=== PATIENT | male | born 1990 | race Two or more races ===

== ENCOUNTER 2023-06-14 21:05 | Emergency (ER) | payer OTHER ==
[2023-06-14 21:14] VITALS: BMI 28.4
[2023-06-14] MEDS ORDERED: morphine CARPU-JECT 4 MG/1 ML DISP.SYRIN IVPUSH ONE (21:28)
[2023-06-14] MEDS ORDERED: SODIUM CHLORIDE 0.9% 500 ML INFUS.BAG IV ONE (21:28)
[2023-06-14] MEDS ORDERED: FAMOTIDINE 20 MG/50 ML IVPB 20 MG/50 ML MG IVPB ONE ×2 (21:28→21:35)
[2023-06-14] MEDS ORDERED: ONDANSETRON 4 MG/2 ML VIAL IVPUSH ONE (21:28)
[2023-06-14] MEDS ORDERED: morphine SULFATE 4 MG/ML VIAL ONE (21:35)
[2023-06-14] MEDS ORDERED: ONDANSETRON 4 MG/2 ML VIAL ONE (21:35)
[2023-06-14 21:52] LABS: BASO % 0.3 % (0-2.0); EOS % 1.3 % (0-4.5); HEMOGLOBIN 15.7 GM/dL (11.7-16.9); LYMPH % 23.2 % (8-40); MCHC 34.9 g/dl (32.0-35.9); MEAN CELL VOLUME 88.9 fl (80-96); MEAN PLT VOLUME 6.7 fl (7.5-11.1); MONO % 6.9 % (3.8-10.2); NEUT % 68.3 % (42.8-82.8); PLATELET COUNT 249 10^3/uL (134-434); RBC 5.06 M/mm3 (4.00-5.60); RDW 13.6 % (11.9-15.9); WHITE BLOOD COUNT 7.7 K/mm3 (4.0-10.0)
[2023-06-14 22:00] LABS: INR 0.93 (0.83-1.09); PROTHROMBIN TIME (PATIENT) 10.8 SEC (9.7-13.0)
[2023-06-14 22:02] LABS: ACTIVATED PTT 28.1 SECONDS (25.2-36.5)
[2023-06-14 22:09] LABS: POTASSIUM 3.4 mmol/L (3.5-5.1)
[2023-06-14 22:11] LABS: CALCIUM 9.3 mg/dL (8.5-10.1)
[2023-06-14 22:12] LABS: ALBUMIN 3.8 g/dl (3.4-5.0); BLOOD UREA NITROGEN 10.7 mg/dL (7-18)
[2023-06-14 22:14] LABS: CREATININE 0.8 mg/dL (0.55-1.3)
[2023-06-14 22:16] LABS: BILIRUBIN,TOTAL 0.8 mg/dL (0.2-1); TOT PROT 7.3 g/dl (6.4-8.2)
[2023-06-15 00:50] VITALS: BP 144/90; PULSE 68; RESP 16; TEMP 97.7
== END 2023-06-15 02:55 | disposition home or self-care (01) ==
LOC: JER 21:05
PROC: 3E033GC Introduction of Other Therapeutic Substance into Peripheral Vein, Percutaneous Approach (ICD-10-PCS; principal; 2023-06-14)
PROC: 3E033GC Introduction of Other Therapeutic Substance into Peripheral Vein, Percutaneous Approach (ICD-10-PCS; 2023-06-14)
PROC: 3E033GC Introduction of Other Therapeutic Substance into Peripheral Vein, Percutaneous Approach (ICD-10-PCS; 2023-06-14)
DX: R10.11 Right upper quadrant pain (principal); R11.2 Nausea with vomiting, unspecified; R07.89 Other chest pain; R00.0 Tachycardia, unspecified; N20.0 Calculus of kidney
CPT/HCPCS: 36415; 71045-TC-FY; 74177-TC; 76705-TC; 80053; 83690; 83735; 84484; 85025; 85610; 85730; 86850; 86900; 86901; 93005; 93010; 99285-25; Q9967

== ENCOUNTER 2023-06-23 22:39 | Emergency (ER) | payer OTHER ==
[2023-06-23 22:49] VITALS: BMI 29.8
[2023-06-23] MEDS ORDERED: FAMOTIDINE 20 MG/50 ML IVPB 20 MG/50 ML MG IVPB ONE ×2 (23:22→23:42)
[2023-06-23] MEDS ORDERED: ACETAMINOPHEN 1000 MG/100 ML BAG IVPB ONE (23:22)
[2023-06-23] MEDS ORDERED: MAG HYDROX/AL HYDROX/SIMETH 30 ML UNIT-DOSE CUP PO ONE (23:22)
[2023-06-23] MEDS ORDERED: MAG HYDROX/AL HYDROX/SIMETH 30 ML UNIT-DOSE CUP ONE (23:42)
[2023-06-23] MEDS ORDERED: ACETAMINOPHEN INJECTION 100 ML IVPB ONE (23:42)
[2023-06-23 23:59] LABS: BASO % 0.7 % (0-2.0); EOS % 3.4 % (0-4.5); HEMATOCRIT 43.8 % (35.4-49); HEMOGLOBIN 15.4 GM/dL (11.7-16.9); LYMPH % 13.4 % (8-40); MCH 31.6 pg (25.7-33.7); MCHC 35.1 g/dl (32.0-35.9); MEAN PLT VOLUME 6.6 fl (7.5-11.1); MONO % 7.4 % (3.8-10.2); NEUT % 75.1 % (42.8-82.8); PLATELET COUNT 269 10^3/uL (134-434); RBC 4.86 M/mm3 (4.00-5.60); RDW 13.5 % (11.9-15.9)
[2023-06-24 00:30] LABS: POTASSIUM 3.8 mmol/L (3.5-5.1)
[2023-06-24 00:33] LABS: ALBUMIN 3.6 g/dl (3.4-5.0); CALCIUM 8.5 mg/dL (8.5-10.1)
[2023-06-24 00:34] LABS: BLOOD UREA NITROGEN 8.6 mg/dL (7-18)
[2023-06-24 00:36] LABS: CREATININE 0.8 mg/dL (0.55-1.3)
[2023-06-24 00:38] LABS: TOT PROT 6.9 g/dl (6.4-8.2)
[2023-06-24 00:41] LABS: BILIRUBIN,TOTAL 0.4 mg/dL (0.2-1)
[2023-06-24 01:20] VITALS: BP 127/72; PULSE 76; RESP 16; TEMP 97.8
== END 2023-06-24 02:42 | disposition left against medical advice (07) ==
LOC: JER 22:39
PROC: 3E033GC Introduction of Other Therapeutic Substance into Peripheral Vein, Percutaneous Approach (ICD-10-PCS; principal; 2023-06-23)
PROC: 3E033NZ Introduction of Analgesics, Hypnotics, Sedatives into Peripheral Vein, Percutaneous Approach (ICD-10-PCS; 2023-06-23)
DX: R10.13 Epigastric pain (principal); R10.811 Right upper quadrant abdominal tenderness
CPT/HCPCS: 36415; 76705-TC; 80053; 83690; 85025; 93005; 93010; 99285-25

== ENCOUNTER 2023-06-24 21:10 | Emergency (ER) | payer OTHER ==
[2023-06-24 21:15] VITALS: TEMP 98.2; BMI 29.5
[2023-06-24] MEDS ORDERED: MAG HYDROX/AL HYDROX/SIMETH 30 ML UNIT-DOSE CUP PO ONE (21:26)
[2023-06-24] MEDS ORDERED: FAMOTIDINE 20 MG/50 ML IVPB 20 MG/50 ML MG IVPB ONE ×2 (21:26→21:41)
[2023-06-24] MEDS ORDERED: ACETAMINOPHEN 1000 MG/100 ML BAG IVPB ONE ×2 (21:26→21:35)
[2023-06-24] MEDS ORDERED: KETOROLAC TROMETHAMINE 30 MG/1 ML VIAL IM ONE (21:27)
[2023-06-24] MEDS ORDERED: LACTATED RINGERS SOLUTION 1000 ML INFUS.BAG IV ONE (21:35)
[2023-06-24] MEDS ORDERED: MAG HYDROX/AL HYDROX/SIMETH 30 ML UNIT-DOSE CUP ONE (21:41)
[2023-06-24 22:13] LABS: BASO % 0.2 % (0-2.0); EOS % 1.1 % (0-4.5); HEMATOCRIT 44.3 % (35.4-49); HEMOGLOBIN 15.5 GM/dL (11.7-16.9); LYMPH % 13.9 % (8-40); MCH 31.7 pg (25.7-33.7); MEAN CELL VOLUME 90.5 fl (80-96); MEAN PLT VOLUME 6.8 fl (7.5-11.1); MONO % 7.1 % (3.8-10.2); NEUT % 77.7 % (42.8-82.8); PLATELET COUNT 274 10^3/uL (134-434); RDW 13.5 % (11.9-15.9); WHITE BLOOD COUNT 8.3 K/mm3 (4.0-10.0)
[2023-06-24 22:20] LABS: INR 0.99 (0.83-1.09); PROTHROMBIN TIME (PATIENT) 11.5 SEC (9.7-13.0)
[2023-06-24 22:23] LABS: ACTIVATED PTT 29.3 SECONDS (25.2-36.5)
[2023-06-24 22:33] LABS: POTASSIUM 3.8 mmol/L (3.5-5.1)
[2023-06-24 22:35] LABS: CALCIUM 8.5 mg/dL (8.5-10.1)
[2023-06-24] MEDS ORDERED: ACETAMINOPHEN INJECTION 100 ML IVPB ONE (22:35)
[2023-06-24 22:36] LABS: ALBUMIN 3.8 g/dl (3.4-5.0); BLOOD UREA NITROGEN 9.2 mg/dL (7-18)
[2023-06-24 22:39] LABS: CREATININE 0.9 mg/dL (0.55-1.3)
[2023-06-24 22:40] LABS: BILIRUBIN,TOTAL 0.8 mg/dL (0.2-1)
[2023-06-24 22:54] LABS: PH,URINE 7.5 (5.0-8.0); URINE APPEARANCE CLEAR; URINE BILIRUBIN NEGATIVE (NEGATIVE); URINE COLOR YELLOW; URINE GLUCOSE (UA) NEGATIVE (NEGATIVE); URINE KETONE NEGATIVE (NEGATIVE); URINE LEUK ESTERASE NEGATIVE (NEGATIVE); URINE NITRITE NEGATIVE (NEGATIVE); URINE PROTEIN NEGATIVE (NEGATIVE); URINE UROBILINOGEN 0.2 mg/dL (0.2-1.0)
[2023-06-24 23:56] VITALS: BP 128/80; PULSE 65; RESP 16
== END 2023-06-25 00:15 | disposition home or self-care (01) ==
LOC: JER 21:10
PROC: 3E033GC Introduction of Other Therapeutic Substance into Peripheral Vein, Percutaneous Approach (ICD-10-PCS; principal; 2023-06-24)
PROC: 3E033NZ Introduction of Analgesics, Hypnotics, Sedatives into Peripheral Vein, Percutaneous Approach (ICD-10-PCS; 2023-06-24)
DX: R10.11 Right upper quadrant pain (principal); K80.50 Calculus of bile duct without cholangitis or cholecystitis without obstruction; F10.20 Alcohol dependence, uncomplicated; Y90.9 Presence of alcohol in blood, level not specified
CPT/HCPCS: 36415; 71045-TC-FY; 80053; 81003; 83690; 85025; 85610; 85730; 86850; 86900; 86901; 93005; 93010; 99285-25

== ENCOUNTER 2023-07-04 21:05 | Inpatient (IN) | payer OTHER ==
[2023-07-04 22:11] LABS: URINE APPEARANCE CLEAR; URINE BILIRUBIN NEGATIVE (NEGATIVE); URINE COLOR YELLOW; URINE GLUCOSE (UA) NEGATIVE (NEGATIVE); URINE KETONE TRACE (NEGATIVE); URINE LEUK ESTERASE NEGATIVE (NEGATIVE); URINE NITRITE NEGATIVE (NEGATIVE); URINE PROTEIN NEGATIVE (NEGATIVE)
[2023-07-04] MEDS ORDERED: NORMAL SALINE FLUSH 0.9% 5 ML SYRINGE IVPUSH ONE (22:37)
[2023-07-04] MEDS ORDERED: KETOROLAC TROMETHAMINE 30 MG/1 ML VIAL IVPUSH ONE (22:40)
[2023-07-04] MEDS ORDERED: SODIUM CHLORIDE 0.9% 1000 ML INFUS.BAG IV ONE (22:41)
[2023-07-04] MEDS ORDERED: KETOROLAC TROMETHAMINE 30 MG/1 ML VIAL ONE (22:53)
[2023-07-04 22:55] LABS: BASO % 0.5 % (0-2.0); HEMATOCRIT 44.9 % (35.4-49); HEMOGLOBIN 15.6 GM/dL (11.7-16.9); LYMPH % 27.3 % (8-40); MCH 31.4 pg (25.7-33.7); MCHC 34.8 g/dl (32.0-35.9); MEAN CELL VOLUME 90.3 fl (80-96); MEAN PLT VOLUME 7.2 fl (7.5-11.1); NEUT % 62.2 % (42.8-82.8); PLATELET COUNT 277 10^3/uL (134-434); RBC 4.97 M/mm3 (4.00-5.60); RDW 13.4 % (11.9-15.9); WHITE BLOOD COUNT 7.5 K/mm3 (4.0-10.0)
[2023-07-04 23:30] LABS: POTASSIUM 4.3 mmol/L (3.5-5.1)
[2023-07-04 23:32] LABS: ALBUMIN 3.6 g/dl (3.4-5.0); BLOOD UREA NITROGEN 14.1 mg/dL (7-18); CALCIUM 8.3 mg/dL (8.5-10.1)
[2023-07-04 23:35] LABS: CREATININE 0.9 mg/dL (0.55-1.3)
[2023-07-04 23:37] LABS: TOT PROT 7.1 g/dl (6.4-8.2)
[2023-07-05 00:21] LABS: BILIRUBIN,TOTAL 0.8 mg/dL (0.2-1)
[2023-07-05 06:31] LABS: BASO % 0.4 % (0-2.0); EOS % 2.4 % (0-4.5); HEMOGLOBIN 15.1 GM/dL (11.7-16.9); LYMPH % 31.5 % (8-40); MCH 31.2 pg (25.7-33.7); MCHC 34.2 g/dl (32.0-35.9); MEAN CELL VOLUME 91.2 fl (80-96); MEAN PLT VOLUME 7.4 fl (7.5-11.1); MONO % 6.9 % (3.8-10.2); NEUT % 58.8 % (42.8-82.8); PLATELET COUNT 234 10^3/uL (134-434); RBC 4.82 M/mm3 (4.00-5.60); RDW 13.3 % (11.9-15.9); WHITE BLOOD COUNT 6.3 K/mm3 (4.0-10.0)
[2023-07-05 06:49] LABS: CHLORIDE 109 mmol/L (98-107); SODIUM 140 mmol/L (136-145)
[2023-07-05 06:54] LABS: CALCIUM 8.2 mg/dL (8.5-10.1)
[2023-07-05 06:55] LABS: ALBUMIN 3.3 g/dl (3.4-5.0); ANION GAP 6 MMOL/L (8-16); BLOOD UREA NITROGEN 10.2 mg/dL (7-18); CO2 26 mmol/L (21-32); GLUCOSE,RANDOM 87 mg/dL (74-106)
[2023-07-05 06:57] LABS: CREATININE 0.7 mg/dL (0.55-1.3); SGOT/AST 31 U/L (15-37)
[2023-07-05 06:58] LABS: PHOSPHOROUS 2.8 mg/dL (2.5-4.9); SGPT/ALT 38 U/L (13-61)
[2023-07-05 06:59] LABS: BILIRUBIN,TOTAL 0.9 mg/dL (0.2-1); TOT PROT 6.2 g/dl (6.4-8.2)
[2023-07-05 07:00] LABS: ALK PHOS 71 U/L (45-117)
[2023-07-05] MEDS ORDERED: NICOTINE 7 MG/24 HOURS TOPICAL PATCH TD ONE (07:52)
[2023-07-05] MEDS ORDERED: ENOXAPARIN NA (PORCINE) 40 MG/0.4 ML DISP.SYRIN SQ ONE (07:53)
[2023-07-05] MEDS: NICOTINE 7 MG/24 HOURS TOPICAL PATCH TD SCH (09:26)
[2023-07-05] MEDS ORDERED: ENOXAPARIN NA (PORCINE) 40 MG/0.4 ML DISP.SYRIN SQ SCH (10:00)
[2023-07-05] MEDS ORDERED: LACTATED RINGERS SOLUTION 1,000 ML/1,000 ML INFUS.BAG IV SCH (10:15)
[2023-07-05] MEDS ORDERED: PANTOPRAZOLE 40 MG TABLET PO ONE (11:57)
[2023-07-05] MEDS: PANTOPRAZOLE 40 MG TABLET PO SCH (12:13)
[2023-07-05] MEDS ORDERED: ACETAMINOPHEN 325 MG TABLET (FP) PO PRN (16:53)
[2023-07-05] MEDS ORDERED: KETOROLAC TROMETHAMINE 15 MG/ML VIAL IVPUSH PRN (16:53)
[2023-07-05 17:01] VITALS: BMI 34.7
[2023-07-05] MEDS ORDERED: PNEUMOC 20-VAL CONJ-DIP CRM/PF 0.5 ML SYRINGE IM ONE (17:01)
[2023-07-06 09:51] LABS: BASO % 0.3 % (0-2.0); EOS % 1.7 % (0-4.5); HEMATOCRIT 48.2 % (35.4-49); HEMOGLOBIN 16.8 GM/dL (11.7-16.9); LYMPH % 39.2 % (8-40); MCH 31.4 pg (25.7-33.7); MCHC 34.8 g/dl (32.0-35.9); MEAN CELL VOLUME 90.1 fl (80-96); MONO % 6.5 % (3.8-10.2); NEUT % 52.3 % (42.8-82.8); PLATELET COUNT 248 10^3/uL (134-434); RBC 5.35 M/mm3 (4.00-5.60); RDW 13.4 % (11.9-15.9); WHITE BLOOD COUNT 4.6 K/mm3 (4.0-10.0)
[2023-07-06 09:54] LABS: INR 0.97 (0.83-1.09); PROTHROMBIN TIME (PATIENT) 11.2 SEC (9.7-13.0)
[2023-07-06 10:08] LABS: POTASSIUM 4.2 mmol/L (3.5-5.1)
[2023-07-06 10:22] LABS: ALBUMIN 3.7 g/dl (3.4-5.0); BLOOD UREA NITROGEN 8.4 mg/dL (7-18); CALCIUM 9.1 mg/dL (8.5-10.1)
[2023-07-06 10:25] LABS: CREATININE 0.9 mg/dL (0.55-1.3)
[2023-07-06] MEDS: NICOTINE 7 MG/24 HOURS TOPICAL PATCH TD SCH (11:12)
[2023-07-06] MEDS: PANTOPRAZOLE 40 MG TABLET PO SCH (11:12)
[2023-07-06] MEDS ORDERED: BUPIVACAINE HCL/PF 0.25% (2.5MG/ML) 10 ML VIAL ONE (13:51)
[2023-07-06] MEDS ORDERED: PROPOFOL 40 ML ONE (15:16)
[2023-07-06] MEDS ORDERED: MIDAZOLAM HCL 2 MG/2 ML SINGLE DOSE VIAL ONE (15:16)
[2023-07-06] MEDS ORDERED: ROCURONIUM BROMIDE 50 MG/5 ML SYRINGE ONE (15:16)
[2023-07-06] MEDS ORDERED: BUPIVACAINE HCL/PF 2.5 MG/ML - 30 ML VIAL IJ ONE (16:01)
[2023-07-06] MEDS ORDERED: PROMETHAZINE HCL 25 MG/1 ML VIAL IVPB PRN (17:05)
[2023-07-06] MEDS ORDERED: LACTATED RINGERS SOLUTION 1,000 ML IV SCH (17:15)
[2023-07-06] MEDS ORDERED: DOCUSATE SODIUM 100 MG CAPSULE (FP) PO PRN (17:35)
[2023-07-06] MEDS: oxyCODONE HCL 5 MG TABLET PO PRN (21:51)
[2023-07-07] MEDS ORDERED: ACETAMINOPHEN 1000 MG/100 ML BAG IVPB PRN (02:00)
[2023-07-07] MEDS: oxyCODONE HCL 5 MG TABLET PO PRN ×2 (02:41→06:28)
[2023-07-07 08:43] LABS: POTASSIUM 4.4 mmol/L (3.5-5.1)
[2023-07-07 08:45] LABS: ALBUMIN 3.6 g/dl (3.4-5.0); CALCIUM 8.9 mg/dL (8.5-10.1)
[2023-07-07 08:46] LABS: BLOOD UREA NITROGEN 7.3 mg/dL (7-18)
[2023-07-07 08:49] LABS: CREATININE 0.8 mg/dL (0.55-1.3)
[2023-07-07 08:50] LABS: BILIRUBIN,TOTAL 1.4 mg/dL (0.2-1)
[2023-07-07 08:55] LABS: BASO % 0.1 % (0-2.0); HEMOGLOBIN 16.5 GM/dL (11.7-16.9); LYMPH % 10.7 % (8-40); MCH 31.5 pg (25.7-33.7); MCHC 35.1 g/dl (32.0-35.9); MEAN CELL VOLUME 89.7 fl (80-96); MEAN PLT VOLUME 7.3 fl (7.5-11.1); MONO % 6.5 % (3.8-10.2); NEUT % 82.7 % (42.8-82.8); PLATELET COUNT 256 10^3/uL (134-434); RBC 5.24 M/mm3 (4.00-5.60); RDW 13.2 % (11.9-15.9); WHITE BLOOD COUNT 9.4 K/mm3 (4.0-10.0)
[2023-07-07] MEDS: PANTOPRAZOLE 40 MG TABLET PO SCH (10:15)
[2023-07-07] MEDS: ENOXAPARIN NA (PORCINE) 40 MG/0.4 ML DISP.SYRIN SQ SCH (10:15)
[2023-07-07] MEDS: NICOTINE 7 MG/24 HOURS TOPICAL PATCH TD SCH (10:15)
[2023-07-07] MEDS: KETOROLAC TROMETHAMINE 15 MG/ML VIAL IVPUSH PRN (23:15)
[2023-07-08 08:13] LABS: BASO % 0.2 % (0-2.0); EOS % 0.5 % (0-4.5); HEMATOCRIT 47.8 % (35.4-49); HEMOGLOBIN 16.4 GM/dL (11.7-16.9); LYMPH % 15.6 % (8-40); MCH 31.6 pg (25.7-33.7); MCHC 34.4 g/dl (32.0-35.9); MEAN CELL VOLUME 91.8 fl (80-96); MEAN PLT VOLUME 7.6 fl (7.5-11.1); MONO % 8.9 % (3.8-10.2); NEUT % 74.8 % (42.8-82.8); PLATELET COUNT 246 10^3/uL (134-434); RDW 13.2 % (11.9-15.9); WHITE BLOOD COUNT 8.8 K/mm3 (4.0-10.0)
[2023-07-08 08:37] LABS: POTASSIUM 4.3 mmol/L (3.5-5.1)
[2023-07-08 08:46] LABS: CALCIUM 8.9 mg/dL (8.5-10.1)
[2023-07-08 08:47] LABS: ALBUMIN 3.7 g/dl (3.4-5.0); BLOOD UREA NITROGEN 11.8 mg/dL (7-18)
[2023-07-08 08:53] LABS: BILIRUBIN,TOTAL 1.3 mg/dL (0.2-1)
[2023-07-08] MEDS: ENOXAPARIN NA (PORCINE) 40 MG/0.4 ML DISP.SYRIN SQ SCH (10:08)
[2023-07-08] MEDS: NICOTINE 7 MG/24 HOURS TOPICAL PATCH TD SCH (10:08)
[2023-07-08] MEDS: PANTOPRAZOLE 40 MG TABLET PO SCH (10:08)
[2023-07-08] MEDS: KETOROLAC TROMETHAMINE 15 MG/ML VIAL IVPUSH PRN (21:21)
[2023-07-09 09:04] LABS: BASO % 0.3 % (0-2.0); EOS % 0.9 % (0-4.5); HEMOGLOBIN 16.9 GM/dL (11.7-16.9); LYMPH % 15.3 % (8-40); MCH 31.6 pg (25.7-33.7); MCHC 34.5 g/dl (32.0-35.9); MEAN CELL VOLUME 91.8 fl (80-96); MEAN PLT VOLUME 7.5 fl (7.5-11.1); NEUT % 76.5 % (42.8-82.8); PLATELET COUNT 268 10^3/uL (134-434); RBC 5.34 M/mm3 (4.00-5.60); RDW 13.1 % (11.9-15.9); WHITE BLOOD COUNT 9.2 K/mm3 (4.0-10.0)
[2023-07-09 09:30] LABS: POTASSIUM 4.1 mmol/L (3.5-5.1)
[2023-07-09 09:32] LABS: ALBUMIN 3.9 g/dl (3.4-5.0); BLOOD UREA NITROGEN 14.1 mg/dL (7-18); CALCIUM 9.2 mg/dL (8.5-10.1); MAGNESIUM 2.1 mg/dL (1.8-2.4)
[2023-07-09 09:35] LABS: PHOSPHOROUS 3.9 mg/dL (2.5-4.9)
[2023-07-09] MEDS: ENOXAPARIN NA (PORCINE) 40 MG/0.4 ML DISP.SYRIN SQ SCH (09:35)
[2023-07-09] MEDS: PANTOPRAZOLE 40 MG TABLET PO SCH (09:35)
[2023-07-09] MEDS: NICOTINE 7 MG/24 HOURS TOPICAL PATCH TD SCH (09:35)
[2023-07-09 09:37] LABS: BILIRUBIN,TOTAL 1.3 mg/dL (0.2-1); TOT PROT 7.6 g/dl (6.4-8.2)
[2023-07-09] MEDS: KETOROLAC TROMETHAMINE 15 MG/ML VIAL IVPUSH PRN (21:33)
[2023-07-10 04:50] VITALS: RESP 18
[2023-07-10] MEDS: NICOTINE 7 MG/24 HOURS TOPICAL PATCH TD SCH (09:21)
[2023-07-10] MEDS: ENOXAPARIN NA (PORCINE) 40 MG/0.4 ML DISP.SYRIN SQ SCH (09:21)
[2023-07-10] MEDS: PANTOPRAZOLE 40 MG TABLET PO SCH (09:21)
[2023-07-10 11:11] VITALS: BP 148/67; PULSE 79; TEMP 98.1
[2023-07-10] MEDS ORDERED: ACETAMINOPHEN 325 MG TABLET (FP) PO ONE (11:12)
== END 2023-07-10 14:23 | disposition home or self-care (01) | DRG 263 ==
LOC: JER 21:05 → JERBED 07-05 00:49 → OBSVTOIN 07-05 04:18 → J6S 07-05 15:55
PROVIDERS: ADMIT Internal Medicine; ATTEND Internal Medicine
PROC: 0DB98ZX Excision of Duodenum, Via Natural or Artificial Opening Endoscopic, Diagnostic (ICD-10-PCS; 2023-07-06)
PROC: 0DB68ZX Excision of Stomach, Via Natural or Artificial Opening Endoscopic, Diagnostic (ICD-10-PCS; 2023-07-06)
PROC: 0DB58ZX Excision of Esophagus, Via Natural or Artificial Opening Endoscopic, Diagnostic (ICD-10-PCS; 2023-07-06)
PROC: 0FT44ZZ Resection of Gallbladder, Percutaneous Endoscopic Approach (ICD-10-PCS; principal; 2023-07-06 12:00)
DX: K81.0 Acute cholecystitis (principal); K29.60 Other gastritis without bleeding; R79.89 Other specified abnormal findings of blood chemistry; R17 Unspecified jaundice; F17.210 Nicotine dependence, cigarettes, uncomplicated; K21.00 Gastro-esophageal reflux disease with esophagitis, without bleeding; R10.11 Right upper quadrant pain
CPT/HCPCS: 36415; 76705-TC; 78226-TC; 80053; 81003; 82150; 83605; 83690; 83735; 84100; 85025; 85610; 86038; 86140; 86850; 86900; 86901; 87086; 88304-TC; 93005; 93010; 94760; 99285-25; A9537; G0378